=== PATIENT | female | born 1990 | race Caucasian/White ===

== ENCOUNTER 2018-10-12 12:16 | Inpatient (IN) | payer MEDICAID ==
[~2018-10-12] VITALS: Ht 160 cm; Wt 85.2 kg
[2018-10-12] MEDS ORDERED: LACTATED RINGER'S 1,000 ML IV PRN (12:22)
[2018-10-12] MEDS ORDERED: BUTORPHANOL 1 MG INJ IV PRN (12:30)
[2018-10-12] MEDS ORDERED: MISOPROSTOL 200 MCG TAB PR PRN (12:30)
[2018-10-12] MEDS ORDERED: IBUPROFEN 600 MG TAB PO PRN (12:30)
[2018-10-12] MEDS ORDERED: BUTORPHANOL 2 MG INJ IV PRN (12:30)
[2018-10-12] MEDS ORDERED: LIDOCAINE 1% (MPF) 30 ML INJ INJ PRN (12:30)
[2018-10-12] MEDS ORDERED: OXYTOCIN 30 UNITS/LR 500 ML IV SCH ×2 (12:30)
[2018-10-12] MEDS ORDERED: OXYTOCIN 30 UNITS/LR 500 ML IV PRN (12:30)
[2018-10-12] MEDS ORDERED: METHYLERGONOVINE 0.2 MG INJ IM PRN (12:30)
[2018-10-12] MEDS ORDERED: CARBOPROST 250 MCG INJ IM PRN (12:30)
[2018-10-12 13:03] VITALS: Ht 160 cm; Wt 85.2 kg
[2018-10-12 13:04] VITALS: BP 132/82; PULSE 95; RESP 20
[2018-10-12] MEDS ORDERED: PREN-93 PO (13:13)
[2018-10-12] MEDS: LACTATED RINGER'S 1,000 ML IV SCH ×2 (13:24→18:14)
[2018-10-12] MEDS ORDERED: MINERAL OIL 30ML CUP PO ONE (14:30)
[2018-10-12] MEDS: MISOPROSTOL 50 MCG CAPSULE PO SCH ×3 (14:51→21:00)
[2018-10-13] MEDS: MISOPROSTOL 50 MCG CAPSULE PO SCH ×6 (01:00→21:00)
[2018-10-13] MEDS ORDERED: OXYTOCIN 30 UNITS/LR 500 ML IV SCH (01:00)
[2018-10-13] MEDS: LACTATED RINGER'S 1,000 ML IV SCH ×4 (01:26→21:18)
--- NOTE | 2018-10-13 02:56 | PREAC ---
Date/Time of Note Date/Time of Note DATE: 10/13/18 TIME: 02:55 Anesthesia Eval and Record Evaluation Time Pre-Procedure Interview DATE: 10/13/18 TIME: 02:55 Age 27 Sex female NPO: 8 hrs Preoperative diagnosis labor pain Planned procedure labor epidural Past Medical History Past Medical History: None Surgery & Anesthesia Issues No known issue Meds Anticoagulation: No Beta Kenan within 24 hr: No Reason Beta Kenan not given: Pt. not on B-Kenan Reported Medications Vit No.124/Iron/FA ( Vitamin Tablet) 1 Each Tablet, 1 EACH PO, TAB 10/12/18 Current Medications Lactated Ringer's 1,000 ml @ 125 mls/hr Q8H IV Last administered on 10/13/18at 01:26; Admin Dose 125 MLS/HR; Start 10/12/18 at 12:22 Butorphanol Tartrate (Stadol) 1 mg Q2H PRN IV .PAIN; Start 10/12/18 at 12:30 Butorphanol Tartrate (Stadol) 2 mg Q2H PRN IV .PAIN; Start 10/12/18 at 12:30 Lidocaine (Xylocaine 1% (Mpf)) 30 ml ONCE PRN INJ .EPISIOTOMY; Start 10/12/18 at 12:30 Oxytocin/Lactated Ringer's 500 ml @ 500 mls/hr ONCE POST IV ; Start 10/12/18 at 12:30 Oxytocin/Lactated Ringer's 500 ml @ 125 mls/hr POST IV ; Start 10/12/18 at 12:30 Ibuprofen (Motrin) 600 mg ONCE PRN PO .PAIN 1-5; Start 10/12/18 at 12:30 Lactated Ringer's 1,000 ml @ 2,000 mls/hr Q30M PRN IV .ANESTHESIA; Start 10/12/18 at 12:22 Oxytocin/Lactated Ringer's 500 ml @ 0 mls/hr ONCE PRN IV .VAGINAL BLEEDING; Start 10/12/18 at 12:30 Methylergonovine Maleate (Methergine) 0.2 mg ONCE PRN IM .VAGINAL BLEEDING; Start 10/12/18 at 12:30 Carboprost Tromethamine (Hemabate) 250 mcg ONCE PRN IM .VAGINAL BLEEDING; Start 10/12/18 at 12:30 Misoprostol (Cytotec) 1,000 mcg ONCE PRN MN .VAGINAL BLEEDING; Start 10/12/18 at 12:30 Misoprostol (Cytotec 50 Mcg Capsule) 50 mcg Q4 PO Last administered on 10/12/18at 19:01; Admin Dose 50 MCG; Start 10/12/18 at 15:00 Oxytocin/Lactated Ringer's 500 ml @ 0 mls/hr FOR AUGMENTATION IV Last administered on 10/13/18at 01:09; Admin Dose 1 MLS/HR; Start 10/13/18 at 01:00 Meds reviewed: Yes Allergies Coded Allergies: No Known Allergy (Unverified , 10/12/18) Allergies Reviewed: Yes Labs/Studies Labs Reviewed: Reviewed by anesthesiologist Result Diagram: 10/12/18 1310 Laboratory Tests 10/12/18 13:10 Blood Bank Test 10/12/18 13:10 Antibody Screen NEGATIVE Blood Type O POSITIVE Rh Immune Globulin Candidate NO test: Positive Pre-procedure Exam Last vitals Vital Signs Date Temp Pulse Resp B/P (MAP) Pulse Ox O2 O2 Flow FiO2 Time Delivery Rate 10/12/18 98.6 95 20 132/82 Room Air 13:04 (99) Airway: Adequate mouth opening, Adequate thyromental dist Mallampati: Mallampati III Teeth: Normal Lung: Normal Heart: Normal ASA Physical Status ASA physical status: 2 Emergency: None Planned Anesthetic Neuraxial: Epidural Planned Pain Management Epidural, Parenteral pain med, Other neuraxial med Pre-operative Attestations Prior to commencing anesthesia and surgery, the patient was re-evaluated, there was verification of: *The patient's identity *The results of appropriate recent lab work and preoperative vital signs *The above evaluation not changing prior to induction *Anesthetic plan, risk benefits, alternative and complications discussed with patient/family; questions answered; patient/family understands, accepts and wishes to proceed. EDWIGE MCFARLANE MD Oct 13, 2018 02:56
[2018-10-13] MEDS ORDERED: NALOXONE (0.4 MG/ML) INJ IV PRN (03:00)
[2018-10-13] MEDS ORDERED: ONDANSETRON 4 MG INJ IV PRN (03:00)
[2018-10-13] MEDS ORDERED: HYDROmorphONE 0.5 MG/0.5 ML SYG IV PRN ×2 (03:00)
[2018-10-13] MEDS ORDERED: DIPHENHYDRAMINE 50 MG INJ IV PRN (03:00)
[2018-10-13] MEDS ORDERED: ZOLPIDEM 5 MG TAB PO PRN (03:00)
[2018-10-13] MEDS ORDERED: KETOROLAC 30 MG INJ IV PRN (03:00)
--- NOTE | 2018-10-13 10:16 | HP ---
Date/Time of Note Date/Time of Note DATE: 10/13/18 TIME: 10:15 OB - History Hx of Present Free Text/Dictation at 40+ weeks for induction Care: Good Care Ultrasounds: Normal mid trimester US Obstetrical Complications: None Medical Complications: None Past Family/Social History * Past Medical, Surgical, Family and Obstetric Histories reviewed from chart. OB Admission Exam Vital Signs Vital Signs Vital Signs Date Temp Pulse Resp B/P (MAP) Pulse Ox O2 O2 Flow FiO2 Time Delivery Rate 10/12/18 98.6 95 20 132/82 Room Air 13:04 (99) Physical Exam HEENT: WNL Heart: Rhythm Normal Lungs: Clear, Equal Abdomen: WNL Extremities: Normal Reflexes: Normal Cervical Dilatation: None Effacement: 0% Station: Ballotable Membranes: Intact Heart Rate: 120's Accelerations: Accelerations Present Decelerations: No Decelerations Contractions on Admission: None Last 72 hours Lab Results CBC & BMP 10/12/18 13:10 OB Assessment/Plan Reason for admission: induction of labor Plan: Induction Induction Method: per Misoprostol Protocol VENTURA VIRAMONTES MD Oct 13, 2018 10:16
[2018-10-13] MEDS: FENTAnyl 2MCG/ML-ROPIV 0.2% 100 ML BAG EPI SCH ×2 (11:52→21:45)
[2018-10-13] MEDS ORDERED: BETAMET NA PHOS/AC(6 MG/ML) 2 ML INJ SYG IM SCH (18:30)
[2018-10-13] MEDS ORDERED: MISOPROSTOL 50 MCG CAPSULE PO SCH (21:00)
[2018-10-14] MEDS: MISOPROSTOL 50 MCG CAPSULE PO SCH ×4 (01:00→13:00)
[2018-10-14] MEDS: LACTATED RINGER'S 1,000 ML IV SCH ×2 (05:16→12:02)
[2018-10-14] MEDS: FENTAnyl 2MCG/ML-ROPIV 0.2% 100 ML BAG EPI SCH (07:00)
--- NOTE | 2018-10-14 07:27 | PAC ---
Date/Time of Note Date/Time of Note DATE: 10/14/18 TIME: 07:27 Post-Anesthesia Notes Post-Anesthesia Note Last documented vital signs Vital Signs Date Temp Pulse Resp B/P (MAP) Pulse Ox O2 O2 Flow FiO2 Time Delivery Rate 10/12/18 98.6 95 20 132/82 Room Air 13:04 (99) Activity: WNL Respiratory function: WNL Cardiovascular function: WNL Mental status: Baseline Pain reasonably controlled: Yes Hydration appropriate: Yes Nausea/Vomiting absent: Yes EDWIGE MCFARLANE MD Oct 14, 2018 07:27
[2018-10-14] MEDS ORDERED: ACETAMINOPHEN 325 MG TAB PO ONE (09:30)
[2018-10-14] MEDS ORDERED: MINERAL OIL LIGHT 10 ML VIAL TOP ONE (12:30)
[2018-10-14] MEDS: DEXTROSE 5%-LR 1,000 ML IV SCH (16:07)
[2018-10-14] MEDS: LACTATED RINGER'S 1,000 ML IV* SCH (16:22)
[2018-10-14] MEDS ORDERED: OXYCODONE/ASPIRIN (4.88/325) TAB PO PRN (16:30)
[2018-10-14] MEDS ORDERED: BENZOCAINE 20% 56 ML SPRAY TOP PRN (16:30)
[2018-10-14] MEDS ORDERED: WITCH HAZEL/GLYCERIN PAD PR PRN (16:30)
[2018-10-14] MEDS ORDERED: OXYTOCIN 30 UNITS/LR 500 ML IV PRN (16:30)
[2018-10-14] MEDS ORDERED: ACETAMINOPHEN 325 MG TAB PO PRN (16:30)
[2018-10-14] MEDS ORDERED: ONDANSETRON 4 MG INJ IV PRN (16:30)
[2018-10-14] MEDS ORDERED: METHYLERGONOVINE 0.2 MG INJ IM PRN (16:30)
[2018-10-14] MEDS ORDERED: DIPHENHYDRAMINE 50 MG INJ IV PRN (16:30)
[2018-10-14] MEDS ORDERED: CARBOPROST 250 MCG INJ IM PRN (16:30)
[2018-10-14] MEDS ORDERED: DIBUCAINE 1% 30 GM OINT TOP PRN (16:30)
[2018-10-14] MEDS ORDERED: MISOPROSTOL 200 MCG TAB PR PRN (16:30)
[2018-10-14] MEDS ORDERED: ZOLPIDEM 5 MG TAB PO PRN (16:30)
[2018-10-14] MEDS ORDERED: OXYTOCIN 30 UNITS/LR 500 ML IV SCH (16:58)
[2018-10-14 17:00] VITALS: BP 119/70; PULSE 89; RESP 18
--- NOTE | 2018-10-14 17:24 | LDN ---
Date/Time of Note Date/Time of Note DATE: 10/14/18 TIME: 17:21 Delivery Summary 27 years old 1 with single intrauterine at 40 weeks and 4 days delivered a viable female over median episiotomy. Nose and mouth suctioned. Rest of body delivered. Cord clamped and cut after stopping pulsation. Baby given to the nurse. Episiotomy repaired with 2-0 Vicryl. Patient tolerated procedure well Time of delivery 10:59 Weight 6 pound 2 ounces-2775 g Height 19 1/4 inches 9 at 1 minutes and 9 at 5 minutes EBL 300 ml Weeks of Gestation 40 weeks and 4 days Placenta Delivered: Spontaneously Meconium: none Episiotomy: Yes (Median) Indication for episiotomy Facilitate vaginal delivery Anesthesia type: Epidural Estimated blood loss: 300 Sponge & Needle done & correct: Yes All needle counts correct: Yes Any foreign bodies felt in the: No Infant Delivery Information Sex Sex: female Apgars 1 Minute: 9 5 Minute: 9 10 Minute: 10 Suctioning Nose & mouth suctioned at nubia: Yes Umbilical Cord Umbilical cord with: 3 Vessels Cord presentations: no nuchal cord Cord Blood was obtained: Yes Mother & Baby Disposition Disposition Mom & Baby to Maternity; Good: Yes MARIAA BOSWELL Oct 14, 2018 17:24
[2018-10-14] MEDS: IBUPROFEN 600 MG TAB PO SCH (17:39)
[2018-10-14] MEDS: LANOLIN HPA 1 PKT TOP PRN (17:42)
[2018-10-14 20:00] VITALS: BP 116/57; PULSE 96; RESP 19
[2018-10-15] MEDS: IBUPROFEN 600 MG TAB PO SCH ×5 (00:09→22:58)
[2018-10-15] MEDS: LACTATED RINGER'S 1,000 ML IV* SCH (01:13)
[2018-10-15] MEDS: DEXTROSE 5%-LR 1,000 ML IV SCH (01:13)
[2018-10-15 04:00] VITALS: BP 112/62; PULSE 75; RESP 19
[2018-10-15 08:29] VITALS: BP 108/57; PULSE 81; RESP 18
--- NOTE | 2018-10-15 11:59 | PN ---
Date/Time of Note Date/Time of Note DATE: 10/15/18 TIME: 11:53 OB Subjective Subjective Subjective Patient report pain in the left breast, Ambulating, Breast feeding. Urinating, Reports mild cramps, OB Objective Objective Objective General appearance: Alert and oriented x4 does not appear to be in any acute distress Abdomen: Soft, fundus palpable below the umbilicus and nontender Breast: Evidence of fissure in the left nipple noted. Extremities: No calf tenderness, no click no edema no cords palpable VS - Last 72 Hours, by Label Date Temp Pulse Resp B/P (MAP) Pulse Ox O2 O2 Flow FiO2 Time Delivery Rate 10/15/18 98.3 81 18 108/57 Room Air 08:29 (74) 10/15/18 97.8 75 19 112/62 Room Air 04:00 (79) 10/14/18 98.1 96 19 116/57 Room Air 20:00 (76) 10/14/18 98.5 89 18 119/70 Room Air 17:00 (86) 10/12/18 98.6 95 20 132/82 Room Air 13:04 (99) Laboratory Tests Test 10/15/18 08:09 White Blood Count 15.1 #H Red Blood Count 3.83 L Hemoglobin 11.4 L Hematocrit 34.5 L Mean Corpuscular Volume 90.1 Mean Corpuscular Hemoglobin 29.8 Mean Corpuscular Hemoglobin Concent 33.0 Red Cell Distribution Width 13.7 Platelet Count 221 Mean Platelet Volume 10.2 Immature Granulocytes % 0.500 H Neutrophils % 76.8 Lymphocytes % 13.9 L Monocytes % 7.0 Eosinophils % 1.5 Basophils % 0.3 Nucleated Red Blood Cells % 0.0 Immature Granulocytes # 0.080 H Neutrophils # 11.6 H Lymphocytes # 2.1 Monocytes # 1.1 H Eosinophils # 0.2 Basophils # 0.0 Nucleated Red Blood Cells # 0.0 OB Assessment/Plan Other Assessment: Status post day #1 Mild leukocytosis, likely reactive. Asymptomatic Doing well Left breast fissure. Discussed regarding consultation. Advised to use nipple shield for breast-feeding. We will see technology sales consultant Anticipate DC home tomorrow JOVITA BENSON MD Oct 15, 2018 11:59
--- NOTE | 2018-10-15 12:05 | DS ---
Date/Time of Note Date/Time of Note DATE: 10/15/18 TIME: 12:05 Discharge Summary Admission/Discharge Info Admit Date/Time Oct 12, 2018 at 12:16 Discharge Date/Time Discharge Diagnosis term Patient Condition: Stable Hospital Course unremarkable Home Meds Reported Medications Vit No.124/Iron/FA ( Vitamin Tablet) 1 Each Tablet, 1 EACH PO, TAB 10/12/18 Primary Care Provider Care Physician No Primary Pending Labs Laboratory Tests Test 10/15/18 08:09 White Blood Count 15.1 10^3/ul (4.8-10.8) Red Blood Count 3.83 10^6/ul (4.20-5.40) Hemoglobin 11.4 g/dl (12.0-16.0) Hematocrit 34.5 % (37.0-47.0) Mean Corpuscular Volume 90.1 fl (82.0-101.0) Mean Corpuscular Hemoglobin 29.8 pg (29.0-33.0) Mean Corpuscular Hemoglobin Concent 33.0 g/dl (32.0-37.0) Red Cell Distribution Width 13.7 % (11.5-14.5) Platelet Count 221 10^3/UL (140-415) Mean Platelet Volume 10.2 fl (7.4-10.4) Immature Granulocytes % 0.500 % (0.001-0.429) Neutrophils % 76.8 % (39.0-77.0) Lymphocytes % 13.9 % (15.0-51.0) Monocytes % 7.0 % (0.0-11.0) Eosinophils % 1.5 % (0.0-7.0) Basophils % 0.3 % (0.0-2.0) Nucleated Red Blood Cells % 0.0 /100WBC (0.0-0.0) Immature Granulocytes # 0.080 10^3/ul (0.0-0.031) Neutrophils # 11.6 10^3/ul (1.6-7.5) Lymphocytes # 2.1 10^3/ul (0.8-2.9) Monocytes # 1.1 10^3/ul (0.3-0.9) Eosinophils # 0.2 10^3/ul (0.0-0.5) Basophils # 0.0 10^3/ul (0.0-0.1) Nucleated Red Blood Cells # 0.0 10^3/ul (0.0-0.0) VENTURA VIRAMONTES MD Oct 15, 2018 12:05
[2018-10-15 15:53] VITALS: BP 119/75; PULSE 80; RESP 18
[2018-10-15 20:00] VITALS: BP 122/72; PULSE 83; RESP 18
[2018-10-15] MEDS: SENNA/DOCUSATE NA (8.6MG/50MG) TAB PO PRN (23:05)
[2018-10-16 04:00] VITALS: BP 120/66; PULSE 80; RESP 18
[2018-10-16] MEDS: IBUPROFEN 600 MG TAB PO SCH ×2 (06:25→12:54)
[2018-10-16 07:40] VITALS: BP 106/66; PULSE 69; RESP 17
[2018-10-16] MEDS ORDERED: MEASLES,MUMPS,RUBELLA VACCINE INJ SC* ONE (09:00)
[2018-10-16] MEDS ORDERED: DIPHTH/TET/ACEL PERTUSS (ADULT) 0.5 ML VIAL IM* ONE (09:00)
[2018-10-16] MEDS: LANOLIN HPA 1 PKT TOP PRN (09:46)
[2018-10-16] MEDS: SENNA/DOCUSATE NA (8.6MG/50MG) TAB PO PRN (09:46)
[2018-10-16] MEDS ORDERED: MAGNESIUM HYDROXIDE 30ML CUP PO ONE (14:00)
--- NOTE | 2018-10-17 18:56 | DELSUM ---
Delivery Summary A-C Datetime Report Generated by CPN: 10/17/2018 18:56 DELIVERY PERSONNEL Customs Inspector: Farrukh Hargrovea MATERNAL INFORMATION Delivery Anesthesia: Epidural Medications in Delivery: 30 UNITS PITOCIN Delivery QBL (ml): 329 Placenta Cultured: No Maternal Complications: Other RN Comments: OPIATES POSITIVE IN PRENATALS; VPH UDS NEGATIVE LABOR SUMMARY EDC: 10/10/2018 00:00 No. Babies in Womb: 1 Attempted: No Labor Anesthesia: Epidural LABOR INFORMATION Reason for Induction: Postterm Complete Dilatation: 10/14/2018 07:26 Cervical Ripening Agents: Cytotec @ 50 Oxytocin: Induction Group B Beta Strep: Negative Antibiotics # of Doses: 0 Steroids Given: None Reason Steroids Not Administered: Not Applicable MEMBRANES Membranes Rupture Method: Spontaneous Rupture of Membranes: 10/14/2018 06:20 Length of Rupture (hr): 4.65 Amniotic Fluid Color: Clear Amniotic Fluid Amount: Moderate Amniotic Fluid Odor: None STAGES OF LABOR Stage 2 hr: 3 Stage 2 min: 33 Stage 3 hr: 0 Stage 3 min: 7 VAGINAL DELIVERY Episiotomy: Median Laceration Extension: Second Degree Laceration Type: Perineal Laceration Repair: Yes Initial Vag Sponge Count: 10+10+10 Final Vag Sponge Count: 30 Initial Vag Sharps Count: 1+3 Final Vag Sharps Count: 4 Sponge Count Correct: Yes; Vaginal Sweep Performed Sharps Count Correct: Yes BABY A INFORMATION Delivery Date/Time: 10/14/2018 10:59 Method of Delivery: Vaginal Born in Route : No : N/A Forceps: N/A Vacuum Extraction: N/A Shoulder Dystocia : N/A SHOULDER DYSTOCIA BABY A Infant Delivery Date/Time: 10/14/2018 10:59 PRESENTATION/POSITION BABY A Presentation: Cephalic Cephalic Presentation: Vertex Breech Presentation: N/A PLACENTA INFORMATION BABY A Placenta Delivery Time : 10/14/2018 11:06 Placenta Method of Delivery: Spontaneous Placenta Status: Delivered SCORES BABY A Heart Rate 1 min: >100 bpm Resp Effort 1 min: Good Cry Reflex Irritability 1 min: Cough/Sneeze/Pulls Away Muscle Tone 1 min: Active Motion Color 1 min: Body Park[place], Extremit Blue Resuscitation Effort 1 min: Tactile Stimulation SCORE 1 MIN: 9 Heart Rate 5 min: >100 bpm Resp Effort 5 min: Good Cry Reflex Irritability 5 min: Cough/Sneeze/Pulls Away Muscle Tone 5 min: Active Motion Color 5 min: Body [place], Extremit Blue Resuscitation Effort 5 min: Tactile Stimulation SCORE 5 MIN: 9 INFANT INFORMATION BABY A Gestational Age at Delivery: 40.4 Gestational Status: Full Term- 39- 40.6 Weeks Outcome : Liveborn Condition : Stable Infant Sex: Female IDENTIFICATION/MEDS BABY A ID Band Number: [id number] ID Band Location: Right Leg; Left Arm Sensor Applied: Yes Sensor Number: [id number] Sensor Location : Cord Clamp Vitamin K Given : Not Given Erythromycin Given: Not Given WEIGHT/LENGTH BABY A Infant Birthweight (gm): 2775 Weight (lb): 6 Weight (oz): 2 Length (in): 19.25 Infant Length (cm): 48.90 CORD INFORMATION BABY A No. Cord Vessels: 3 Nuchal Cord : N/A Cord Blood Taken: Yes Suction: Mouth; Nose ASSESSMENT BABY A Infant Complications: Multiple Variable Decels Physical Findings at Delivery: Molding of the Head; Within Normal Limits Respirations: Appears Normal Forensic Audit Expert/ALS Called : No Care By: Sivakumar Clark Transferred To: Remains with Mother
== END 2018-10-16 18:56 | disposition home or self-care (01) | DRG 807 ==
LOC: L-D 12:16 → PP1 10-14 16:49
PROVIDERS: ADMIT Obstetrics & Gynecology; ATTEND Obstetrics & Gynecology
PROC: 10E0XZZ Delivery of Products of Conception, External Approach (ICD-10-PCS; principal; 2018-10-13)
PROC: 0W8NXZZ Division of Female Perineum, External Approach (ICD-10-PCS; 2018-10-13)
PROC: 3E033VJ Introduction of Other Hormone into Peripheral Vein, Percutaneous Approach (ICD-10-PCS; 2018-10-13)
DX: O48.0 Post-term pregnancy (principal); Z37.0 Single live birth; Z3A.40 40 weeks gestation of pregnancy
CPT/HCPCS: 76815; 80307; 85025; 85610; 85730; 86592; 86850; 86900; 86901; 87340; 90715; 99464; A4310; J0702; J1200; J2590; J3010; J7120; J7121